=== PATIENT | male | born 1990 | race Caucasian/White ===

== ENCOUNTER 2019-04-15 11:37 | Emergency (ER) | payer BC ==
[~2019-04-15] VITALS: Ht 193 cm; Wt 118.2 kg
[2019-04-15 13:05] LABS: BASOPHILS # (AUTO) 0.1 X10'3 (0-0.2); BASOPHILS % (AUTO) 0.6 % (0-1); EOSINOPHILS # (AUTO) 0.2 X10'3 (0-0.9); EOSINOPHILS % (AUTO) 2.3 % (0-6); HEMOGLOBIN 14.2 g/dl (14.0-17.9); LYMPHOCYTES # (AUTO) 1.5 X10'3 (1.1-4.8); LYMPHOCYTES % (AUTO) 17.8 % (21-51); MEAN CORPUSCULAR HEMOGLOBIN 31.7 PG (27.0-31.0); MEAN CORPUSCULAR HGB CONC 33.9 g/dL (33.0-36.5); MEAN CORPUSCULAR VOLUME 93.5 FL (78-98); MEAN PLATELET VOLUME 9.3 FL (7.4-10.4); MONOCYTES # (AUTO) 0.6 X10'3 (0-0.9); MONOCYTES % (AUTO) 7.3 % (2-12); PLATELET COUNT 256 X10'3 (140-440); RED BLOOD COUNT 4.49 X10'6 (4.70-6.10); RED CELL DISTRIBUTION WIDTH 15.1 % (11.5-14.5); WHITE BLOOD COUNT 8.4 X10'3 (4.5-11.0)
[2019-04-15 13:12] LABS: ALANINE AMINOTRANSFERASE 52 U/L (12-78); ALBUMIN/GLOBULIN RATIO 0.9 (1.1-1.5); ALKALINE PHOSPHATASE 67 IU/L (46-116); ANION GAP 10 (8-16); ASPARTATE AMINO TRANSFERASE 45 U/L (10-37); BILIRUBIN,TOTAL 0.5 MG/DL (0.1-1.0); BLOOD UREA NITROGEN 11 MG/DL (7-18); BUN/CREATININE RATIO 7.1 (5.4-32.0); CALCIUM 8.2 MG/DL (8.5-10.1); CHLORIDE 99 MMOL/L (99-107); CREATININE 1.56 MG/DL (0.60-1.10); GLUCOSE 90 MG/DL (70-104); LIPASE 335 U/L (73-393); POTASSIUM 3.1 MMOL/L (3.5-5.1); SODIUM 137 MMOL/L (135-145); TOTAL CARBON DIOXIDE 27.8 MMOL/L (24-32); TOTAL PROTEIN 8.4 G/DL (6.4-8.2); eGFR 53 ML/MIN
[2019-04-15] MEDS ORDERED: morphine 4 MG/ML inj SYRINge IV ONE (13:50)
[2019-04-15] MEDS ORDERED: ringers solution, lactated 1000ml IV soln IV ONE (13:50)
[2019-04-15] MEDS ORDERED: ondansetron/PF 4mg/2ml inj IV ONE (13:50)
[2019-04-15] MEDS ORDERED: iohexol 300mg/ml 100ml inj. ONE (14:07)
[2019-04-15 14:13] LABS: C-REACTIVE PROTEIN 3.06 MG/DL (0.0-0.5)
--- NOTE | 2019-04-15 14:18 | NUR ---
TO CT SCAN VIA WHEELCHAIR WITH ELECTRONIC TRAIN CONTROL TECHNICIAN
--- NOTE | 2019-04-15 15:22 | NUR ---
RIGHT WRIST CAST NOTED. PT BROKE RADIAL AND ULNA NERVE 6 WEEKS AGO. PT BP 98/ REPORTED DR. SALGUERO.
[2019-04-15 15:47] LABS: CLARITY,URINE CLEAR (Clear); COLOR,URINE YELLOW (Yellow); GLUCOSE, URINE NEGATIVE (Neg); KETONES,URINE NEGATIVE (Neg); LEUKOCYTE ESTERASE ,URINE NEGATIVE (Neg); NITRITES, URINE NEGATIVE (Neg); OCCULT BLOOD,URINE NEGATIVE (Neg); PROTEIN,URINE NEGATIVE (Neg); UA COLLECTION TYPE CLN CATCH MIDSTREAM; UROBILINOGEN,URINE 0.2 E.U/dL (0.2-1.0)
[2019-04-15] MEDS ORDERED: proCHLORperazine 10 MG/2 ml inj IV ONE (15:50)
[2019-04-15] MEDS ORDERED: morphine 2 MG/ML inj. syringe IV ONE (16:50)
[2019-04-15] MEDS ORDERED: diphenhydrAMINE 50 mg/ml inj IV ONE (16:50)
[2019-04-15] MEDS ORDERED: metoclopramide 5 mg/ml inj IV ONE (16:50)
[2019-04-15] MEDS ORDERED: PROC-8 PO (19:03)
[2019-04-15] MEDS ORDERED: PROM25TA14 PO (19:03)
[2019-04-15 19:26] VITALS: BP 91/69
== END 2019-04-15 19:18 | disposition home or self-care (01) ==
LOC: ER 11:38
DX: R11.2 Nausea with vomiting, unspecified (principal); R19.7 Diarrhea, unspecified; R10.11 Right upper quadrant pain; R10.12 Left upper quadrant pain; M54.9 Dorsalgia, unspecified; R53.1 Weakness; I10 Essential (primary) hypertension; F41.9 Anxiety disorder, unspecified; F32.9 Major depressive disorder, single episode, unspecified; Z88.2 Allergy status to sulfonamides; Z88.1 Allergy status to other antibiotic agents; Z79.899 Other long term (current) drug therapy; Z86.73 Personal history of transient ischemic attack (TIA), and cerebral infarction without residual deficits; Z87.19 Personal history of other diseases of the digestive system
CPT/HCPCS: 36415; 70450; 74177; 80053; 81003; 83690; 84484; 85025; 85610; 85651; 86140; 93005; 96361; 96374; 96375; 96376; 99284; J0780; J1200; J2270; J2405; J2765; Q9967; J7120

== ENCOUNTER 2019-07-29 10:38 | Emergency (ER) | payer BC ==
[~2019-07-29] VITALS: Ht 193 cm; Wt 122.0 kg
[~2019-07-29 10:38] MED LIST: PROC-8 PO
[2019-07-29] MEDS ORDERED: normal saline 1000ML IV soln IVB ONE ×2 (11:25→13:20)
[2019-07-29] MEDS ORDERED: ondansetron/PF 4mg/2ml inj IV ONE (11:25)
[2019-07-29 11:51] LABS: BASOPHILS # (AUTO) 0.1 X10'3 (0-0.2); BASOPHILS % (AUTO) 0.7 % (0-1); EOSINOPHILS # (AUTO) 0.1 X10'3 (0-0.9); EOSINOPHILS % (AUTO) 0.5 % (0-6); HEMOGLOBIN 12.6 g/dl (14.0-17.9); LYMPHOCYTES # (AUTO) 0.9 X10'3 (1.1-4.8); LYMPHOCYTES % (AUTO) 5.9 % (21-51); MEAN CORPUSCULAR HEMOGLOBIN 30.6 PG (27.0-31.0); MEAN CORPUSCULAR HGB CONC 34.1 g/dL (33.0-36.5); MEAN CORPUSCULAR VOLUME 89.8 FL (78-98); MEAN PLATELET VOLUME 8.3 FL (7.4-10.4); MONOCYTES # (AUTO) 0.7 X10'3 (0-0.9); MONOCYTES % (AUTO) 4.5 % (2-12); NEUTROPHILS # (AUTO) 13.8 X10'3 (1.8-7.7); NEUTROPHILS % (AUTO) 88.4 % (42-75); PLATELET COUNT 224 X10'3 (140-440); RED BLOOD COUNT 4.12 X10'6 (4.70-6.10); RED CELL DISTRIBUTION WIDTH 16.3 % (11.5-14.5); WHITE BLOOD COUNT 15.6 X10'3 (4.5-11.0)
[2019-07-29 12:04] LABS: PARTIAL THROMBOPLASTIN TIME 30 SECONDS (22-32)
[2019-07-29] MEDS ORDERED: acetaminophen 325mg tablet PO ONE (12:05)
[2019-07-29 12:14] LABS: ALANINE AMINOTRANSFERASE 35 U/L (12-78); ALBUMIN 3.8 G/DL (3.4-5.0); ALKALINE PHOSPHATASE 80 IU/L (46-116); ANION GAP 10 (8-16); ASPARTATE AMINO TRANSFERASE 23 U/L (10-37); BILIRUBIN,TOTAL 0.6 MG/DL (0.1-1.0); BLOOD UREA NITROGEN 7 MG/DL (7-18); BUN/CREATININE RATIO 6.5 (5.4-32.0); CHLORIDE 100 MMOL/L (99-107); CREATININE 1.07 MG/DL (0.60-1.10); GLUCOSE 114 MG/DL (70-104); LIPASE 76 U/L (73-393); POTASSIUM 3.6 MMOL/L (3.5-5.1); SODIUM 137 MMOL/L (135-145); TOTAL CARBON DIOXIDE 27.3 MMOL/L (24-32); TOTAL PROTEIN 7.8 G/DL (6.4-8.2); eGFR 82 ML/MIN
[2019-07-29 13:28] LABS: CLARITY,URINE CLEAR (Clear); COLOR,URINE YELLOW (Yellow); GLUCOSE, URINE NEGATIVE (Neg); KETONES,URINE NEGATIVE (Neg); LEUKOCYTE ESTERASE ,URINE NEGATIVE (Neg); NITRITES, URINE NEGATIVE (Neg); OCCULT BLOOD,URINE NEGATIVE (Neg); PROTEIN,URINE NEGATIVE (Neg); UA COLLECTION TYPE URINAL; UROBILINOGEN,URINE 0.2 E.U/dL (0.2-1.0)
[2019-07-29] MEDS ORDERED: ketorolac trometh. 30mg/ml inj. IV ONE (13:30)
[2019-07-29] MEDS ORDERED: CefTRIAXone/D5W-Rocephin 1gm 50 ML IV ONE (14:15)
[2019-07-29] MEDS ORDERED: azithromycin/NS 500mg/250ml 250 ML IV ONE (14:15)
[2019-07-29] MEDS ORDERED: LEVO750T21 PO (14:40)
[2019-07-29] MEDS ORDERED: proCHLORperazine 10 MG/2 ml inj IV ONE (15:20)
[2019-07-29] MEDS ORDERED: PROC-8 PO (15:31)
--- NOTE | 2019-07-29 16:10 | NUR ---
relieving RN for break, pt is sleeping, resp even and unlabored, antibiotic still infusing via pump, pt aware he will be dc'd after med infused, family at bedside
--- NOTE | 2019-07-29 16:22 | NUR ---
GAVE PT ICE WATER, CHRISTIAN WELL, NO N/V
[2019-07-29 17:04] VITALS: BP 120/82
== END 2019-07-29 17:06 | disposition home or self-care (01) ==
LOC: ER 10:38
DX: J18.9 Pneumonia, unspecified organism (principal); R11.2 Nausea with vomiting, unspecified; I10 Essential (primary) hypertension; F41.9 Anxiety disorder, unspecified; F32.9 Major depressive disorder, single episode, unspecified; R79.1 Abnormal coagulation profile; Z86.73 Personal history of transient ischemic attack (TIA), and cerebral infarction without residual deficits; Z88.2 Allergy status to sulfonamides; Z88.8 Allergy status to other drugs, medicaments and biological substances; Z79.899 Other long term (current) drug therapy
CPT/HCPCS: 36415; 71045; 74176; 80053; 81003; 83605; 83690; 84145; 85025; 85610; 85730; 87502; 87503; 96361; 96365; 96366; 96368; 96375; 99284; J0456; J0696; J0780; J1885; J2405; J7030